=== PATIENT | female | born 1990 ===

== ENCOUNTER 2021-07-02 06:00 | Day surgery (SDC) | payer OTHER | END 2021-07-02 10:15 | disposition home or self-care (01) | LOC: AMB-ENDOS 06:00 | PROVIDERS: ATTEND Surgery | DX: K29.70 Gastritis, unspecified, without bleeding (principal); K21.9 Gastro-esophageal reflux disease without esophagitis; I10 Essential (primary) hypertension; K76.0 Fatty (change of) liver, not elsewhere classified ==